=== PATIENT | female | born 1995 | race Caucasian/White ===

== ENCOUNTER 2022-08-11 12:51 | Emergency (ER) | payer OTHER ==
[2022-08-11 13:40] VITALS: TEMP 98.9; BMI 28.5
[2022-08-11 13:48] LABS: BASO % 0.6 % (0-2.0); EOS % 1.2 % (0-4.5); HEMATOCRIT 38.7 % (32.4-45.2); LYMPH % 20.9 % (8-40); MCH 30.6 pg (25.7-33.7); MCHC 33.5 g/dl (32.0-36.0); MEAN CELL VOLUME 91.2 fl (80-96); MEAN PLT VOLUME 7.6 fl (7.5-11.1); MONO % 6.2 % (3.8-10.2); NEUT % 71.1 % (42.8-82.8); PLATELET COUNT 359 10^3/uL (134-434); RBC 4.24 M/mm3 (3.60-5.2); RDW 12.9 % (11.6-15.6); WHITE BLOOD COUNT 12.6 K/mm3 (4.0-10.0)
[2022-08-11 13:51] LABS: INR 1.16 (0.83-1.09); PROTHROMBIN TIME (PATIENT) 13.4 SEC (9.7-13.0)
[2022-08-11 13:53] LABS: ACTIVATED PTT 30.2 SECONDS (25.2-36.5)
[2022-08-11 14:13] LABS: CALCIUM 9.3 mg/dL (8.5-10.1)
[2022-08-11 14:14] LABS: BLOOD UREA NITROGEN 8.8 mg/dL (7-18)
[2022-08-11 14:16] LABS: CREATININE 0.6 mg/dL (0.55-1.3)
[2022-08-11 14:18] LABS: BILIRUBIN,TOTAL 0.5 mg/dL (0.2-1); TOT PROT 7.4 g/dl (6.4-8.2)
[2022-08-11 17:10] LABS: EPI CELLS 21 /uL (0-25.1); HYALINE CASTS 0 /uL (0-3.1); URINE APPEARANCE CLEAR; URINE BACTERIA 112 /uL (0-1359); URINE BILIRUBIN NEGATIVE (NEGATIVE); URINE COLOR YELLOW; URINE GLUCOSE (UA) NEGATIVE (NEGATIVE); URINE KETONE 1+ (NEGATIVE); URINE LEUK ESTERASE NEGATIVE (NEGATIVE); URINE NITRITE NEGATIVE (NEGATIVE); URINE PROTEIN NEGATIVE (NEGATIVE); URINE RBC 17 /uL (0-23.9); URINE UROBILINOGEN 0.2 mg/dL (0.2-1.0); URINE WBC 5 /uL (0-25.8)
[2022-08-11 17:59] VITALS: BP 108/58; PULSE 69; RESP 15
== END 2022-08-11 20:33 | disposition home or self-care (01) ==
LOC: JER 12:51
DX: O20.9 Hemorrhage in early pregnancy, unspecified (principal); O26.811 Pregnancy related exhaustion and fatigue, first trimester; R55 Syncope and collapse; R53.1 Weakness; Z3A.01 Less than 8 weeks gestation of pregnancy; Z20.822 Contact with and (suspected) exposure to COVID-19
CPT/HCPCS: 0241U-QW; 36415; 76817-TC; 80053; 81003; 84702; 85025; 85610; 85730; 86850; 86900; 86901; 87086; 93005; 93010; 99285-25